=== PATIENT | female | born 1970 | race Two or more races ===

== ENCOUNTER 2016-08-07 23:59 | Emergency (ER) | payer BC ==
--- NOTE | ~2016-08-07 | CR126 ---
[facility] A Service of [facility] RADIOLOGY TEXT RESULTS PATIENT: RONALD DURON LOCATION: [facility] : [birth year] UNIT #: [id number] AGE: [address]: Ghislaine Marquez MD SEX: F ORDER DR: [id number] [facility] [address] [place], [place] [address] [id number] E MR#: [id number] Acc #: [id number] NAME: RONALD DURON : 1970 SEX: F STUDY DATE/TIME: 08/08/2016 0:28 UNIT: [facility] ROOM: STUDY DESCRIPTION: CR Foot Complete Min 3 View Lt Attending Physician: Ghislaine Marquez M.D. Ordering Physician: Ghislaine Marquez M.D. Primary Care Physician: Primary Care Physician No MEDICAL IMAGING REPORT This report is preliminary unless electronic signature is present EXAM 3 views of the left foot. DATE 08/08/2016 HISTORY Dorsal left foot pain and swelling for 2 weeks. No known injury. COMPARISON None FINDINGS No fracture. No joint dislocation. No retained radiopaque foreign body is identified. No significant osteoarthritic changes are evident. IMPRESSION 1. Normal 3 views of the left foot. Dictated by... Ellie Morrison M.D. THIS IS AN ELECTRONICALLY VERIFIED REPORT Ellie Morrison M.D. at 08/08/2016 9:58 PM [facility] TD: 08/08/2016 01:52 JOB #: [id number] MEDICAL IMAGING REPORT Page 1 of 1 COPY
--- NOTE | ~2016-08-07 | CR252 ---
[facility] A Service of [facility] RADIOLOGY TEXT RESULTS PATIENT: RONALD DURON LOCATION: [facility] : 66 UNIT #: [id number] AGE: [address]: Ghislaine Marquez MD SEX: F ORDER DR: [id number] [address] [address] [id number] E MR#: [id number] Acc #: [id number] NAME: RONALD DURON : 1970 SEX: F STUDY DATE/TIME: 08/08/2016 0:25 UNIT: [facility] ROOM: STUDY DESCRIPTION: CR Tibia and Fibula 2 Views Lt Attending Physician: Ghislaine Marquez M.D. Ordering Physician: Ghislaine Marquez M.D. Primary Care Physician: Primary Care Physician No MEDICAL IMAGING REPORT This report is preliminary unless electronic signature is present EXAM 2 views of the left tibia and fibula. DATE 08/08/2016 at 00:25 HISTORY Left tibia-fibula swelling and pain in the dorsal foot for 2 weeks. No known injury. COMPARISON None. FINDINGS No acute fracture is seen. The knee and ankle joints remain appropriately aligned. Mild osteopenic changes are thought to be present. No osteolytic or osteoblastic abnormality. No evidence of periostitis or osteomyelitis identified. IMPRESSION No acute abnormality of the left tibia and fibula. Dictated by... Ellie Morrison M.D. THIS IS AN ELECTRONICALLY VERIFIED REPORT Ellie Morrison M.D. at 08/08/2016 9:58 PM [facility] TD: 08/08/2016 01:50 JOB #: [id number] [facility] A Service of [facility] RADIOLOGY TEXT RESULTS PATIENT: RONALD DURON LOCATION: [facility] : 66 UNIT #: [id number] AGE: [address]: Ghislaine Marquez MD SEX: F ORDER DR: MEDICAL IMAGING REPORT Page 1 of 1 COPY
[2016-08-08 01:27] LABS: BASOPHIL% 0.3 % (0-2.5); EOSINOPHIL# 0.3 X10e3 (0-0.7); EOSINOPHIL% 3.9 % (0.0-7.0); HEMATOCRIT 36.3 % (35.0-45.0); HEMOGLOBIN 11.8 gm/dL (12.0-16.0); LYMPHOCYTE# 1.5 X10e3 (1.0-3.5); LYMPHOCYTE% 22.8 % (17.0-45.0); MEAN CELL VOLUME 84.6 FL (83-96); MEAN CORPUSCULAR HEMOGLOBIN 27.6 PG (28-34); MEAN CORPUSCULAR HGB CONC 32.7 g/dL (30-36); MEAN PLATELET VOLUME 9.3 FL (6.5-11.5); MONOCYTE# 0.4 X10e3 (0-1.0); MONOCYTE% 5.8 % (3.0-12.0); NEUTROPHIL# 4.6 X10e3 (1.5-7.1); NEUTROPHIL% 67.2 % (40-75); PLATELET COUNT 173 X10e3 (140-420); RED BLOOD COUNT 4.28 X10e (3.90-5.30); RED CELL DISTRIBUTION WIDTH 14.9 % (11.0-15.5); WHITE BLOOD COUNT 6.8 X10e3 (4.0-10.5)
[2016-08-08 01:30] LABS: DIFF IND NO
[2016-08-08 01:44] LABS: ALBUMIN SERUM 3.9 g/dL (3.5-5.0); BILIRUBIN, DIRECT 0.1 mg/dL (0.0-0.2); BILIRUBIN,INDIRECT 0.3 mg/dL (0.0-0.9); BILIRUBIN,TOTAL 0.4 mg/dL (0.2-2.0); BUN/CREATININE RATIO 28.57; CALCIUM SERUM 8.8 mg/dL (8.4-10.2); CREATININE SERUM 0.7 mg/dL (0.6-1.4); GLOM FILT RATE Estimated 102.5 mL/min (>60); POTASSIUM 3.5 mmol/L (3.5-5.1); PROTEIN TOTAL SERUM 7.3 g/dL (6.0-8.3)
== END 2016-08-08 02:50 | disposition home or self-care (01) ==
LOC: CED 23:59
PROVIDERS: Student in an Organized Health Care Education/Training Program
DX: M79.605 Pain in left leg (principal); M79.604 Pain in right leg; G89.29 Other chronic pain; Z98.890 Other specified postprocedural states; Z79.899 Other long term (current) drug therapy
CPT/HCPCS: 36415; 73590; 73630; 80048; 80076; 83880; 85025; 99284

== ENCOUNTER → 2016-08-08 | Outpatient (CLI) | payer BC ==
--- NOTE | ~2016-08-08 | US85 ---
[facility] A Service of [facility] RADIOLOGY TEXT RESULTS PATIENT: RONALD DURON LOCATION: [facility] : 66 UNIT #: [id number] AGE: [address]: Ghislaine Marquez MD SEX: F ORDER DR: [id number] [facility] [address] [place], [place] [address] [id number] O MR#: [id number] Acc #: [id number] NAME: RONALD DURON : 1970 SEX: F STUDY DATE/TIME: 08/08/2016 16:22 UNIT: [facility] ROOM: STUDY DESCRIPTION: [facility] Attending Physician: Ghislaine Marquez M.D. Referring Physician: Ghislaine Marquez M.D. Ordering Physician: Ghislaine Marquez M.D. Primary Care Physician: No Primary Care Physician MEDICAL IMAGING REPORT This report is preliminary unless electronic signature is present EXAM Left lower extremity venous duplex 08/08/2016 HISTORY Left lower extremity pain and swelling for one month. Evaluate for deep venous thrombosis. TECHNIQUE Venous ultrasound examination of the left lower extremity was performed using grayscale, spectral Doppler and color flow Doppler imaging. FINDINGS The examination is negative. There is no evidence of left lower extremity deep venous thrombus from the groin to the lower calf. Visualized greater saphenous vein is also patent. IMPRESSION Negative examination. No evidence of left lower extremity deep venous thrombosis. Dictated by... Frank Camara M.D. THIS IS AN ELECTRONICALLY VERIFIED REPORT Frank Camara M.D. at 08/09/2016 2:12 PM K[facility]/rnr TD: 08/08/2016 19:56 JOB #: [id number] [facility] A Service [facility] RADIOLOGY TEXT RESULTS PATIENT: RONALD DURON LOCATION: [facility] : 66 UNIT #: [id number] AGE: [address]: Ghislaine Marquez MD SEX: F ORDER DR: MEDICAL IMAGING REPORT Page 1 of 1 COPY
== END | disposition home or self-care (01) ==
LOC: CNIV 15:45
DX: M79.605 Pain in left leg (principal)
CPT/HCPCS: 93971